=== PATIENT | female | born 1955 | race Caucasian/White ===

== ENCOUNTER → 2023-08-25 06:31 | Day surgery (SDC) | payer MEDICARE, OTHER, SELFPAY | LOC: GI 06:31 | PROVIDERS: ATTENDING PHYSICIAN Internal Medicine Gastroenterology | DX: Z12.11 Encounter for screening for malignant neoplasm of colon (principal); Z86.010 Personal history of colon polyps; K64.8 Other hemorrhoids; K57.30 Diverticulosis of large intestine without perforation or abscess without bleeding | CPT/HCPCS: G0105 ==

== ENCOUNTER 2024-10-24 23:59 | Observation (INO) | payer MEDICARE, OTHER, SELFPAY ==
[2024-10-24 18:36] VITALS: BP 119/73
[2024-10-24 18:48] LABS: Glucose - Point of Care 102 mg/dl (70-99)
[2024-10-24 19:03] LABS: Hematocrit 40.3 % (37.0-47.0); Hemoglobin 13.6 g/dL (12.0-16.0); Mean Corp Hgb Conc. 33.7 g/dL (33.0-37.0); Mean Corpuscular Volume 92.0 fL (81.0-99.0); Nucleated Red Blood Cells % 0 %; Platelet Count 221 10^3/uL (130-400); Red Cell Dist. Width 12.7 % (11.5-14.5)
[2024-10-24 19:23] LABS: ALT (SGPT) 25 U/L (0-35); AST (SGOT) 23 U/L (14-36); Albumin 4.3 g/dl (3.5-5.0); Alkaline Phosphatase 38 U/L (38-126); Blood Urea Nitrogen 18 mg/dl (7-17); Calcium 9.4 mg/dl (8.4-10.2); Carbon Dioxide 29 mmol/L (22-30); Chloride 102 mmol/L (98-107); Glucose 100 mg/dl (70-99); Lithium 1.3 mmol/L (0.6-1.2); Potassium 3.9 mmol/L (3.5-5.1); Sodium 137 mmol/L (135-145); Total Protein 7.4 g/dl (6.3-8.2); eGFR 49.31
--- NOTE | 2024-10-24 20:21 | ED.CVA ---
History of Present Illness
General
Chief Complaint: CVA/TIA Symptoms
Time Seen by Provider: 10/24/24 20:21
Onset of Stroke Symptoms
Onset of symptoms known: No
Time pt last seen normal is known: Yes
Date last time pt seen normal: 10/24/24
History of Present Illness
History of Present Illness:
PAST MEDICAL HISTORY AND REVIEW OF OLD RECORDS
- The patient has a history of diabetes, high blood pressure, hyperlipidemia, and bipolar disorder.
Note:
CHIEF COMPLAINT(S)
Inability to complete sentences and confusion.
I initially spoke to her for history.
HISTORY OF PRESENT ILLNESS
The patient is a 69-year-old female who, according to her , appeared normal at 7 AM this morning. However, [facility] 12 [facility], she began experiencing difficulty in completing sentences, often pausing as if
she lost her words. This symptom has not been noted before, and the patient has no history of stroke. There is no indication of weakness on one side of her body. Currently, she is confused; she has difficulty recalling familiar names such as her
grandsons and struggles with remembering the current day. Additionally, she exhibited problems with tasks such as writing a check, suggesting more than just memory issues. There has been a significant change in her cognitive abilities today compared
to minor occasional forgetfulness in the past year, indicating a major departure from her usual baseline.
PAST MEDICAL AND SURGICAL HISTORY
The patient has an unspecified list of medications, none of which are blood thinners, as reported by her . Her past medical or surgical history relevant to blood-thinning medications is not noted by the .
PHYSICAL EXAM
General: Alert, no acute distress.
Skin: Warm, dry.
Head: Normocephalic, atraumatic.
Neck: Supple, trachea midline.
Eye, Ears, Nose, Mouth, and Throat: Oral mucosa moist.
Cardiovascular: Normal peripheral perfusion, No edema.
Respiratory: Respirations are non-labored.
Gastrointestinal: Abdomen nondistended.
Back: Normal range of motion, normal alignment.
Musculoskeletal: Normal range of motion, normal strength.
Neurological: Excellent strength in all extremities, she could not name the month, she cannot state her age, there is some very mild expressive aphasia at times, she does appear somewhat confused at times, there are no field cuts, questionable
ataxia with finger-nose testing, she continues to be unable to write appropriately
Psychiatric: Cooperative, appropriate mood and affect.
PROBLEM LIST
- Acute: Cognitive impairment, difficulty with verbal expression and task completion.
PLAN
The plan includes obtaining a computed tomography (CT) scan to evaluate for potential neurological causes of the acute cognitive changes noted.
DIFFERENTIAL DIAGNOSIS
The Differential Diagnosis includes, in no particular order and is not limited to:
- Transient ischemic attack
- Stroke
- Delirium
- Alzheimers disease exacerbation
- Medication side effects
- Seizure activity
- Brain tumor
- Hypothyroidism
- Urinary tract infection causing confusion
- Dehydration
RADIOLOGY
- CT head obtained.
EKG
- Sinus 62, normal axis, nonspecific ST abnormality
LABS
- White count 8.9, hemoglobin 13.6, BUN 18, creatinine 1.2, lithium 1.3
SUMMARY OF ENCOUNTER
The patient is a 69-year-old female presenting with acute cognitive changes characterized by an inability to complete sentences and confusion. She was seen in the emergency department after experiencing a significant change from her baseline
cognitive function. Initial evaluation found no focal neurological deficits and a normal CT scan of the head. Despite the absence of clear imaging evidence of a stroke, there remains a high suspicion for an acute cerebrovascular event, particularly
a stroke over a transient ischemic attack (TIA), as her symptoms have not yet resolved. Based on an assessment by a neurologist, further evaluation, including a CT angiogram to assess blood vessels and an MRI, has been recommended for a more
comprehensive evaluation of possible stroke etiology.
DISPOSITION
Admit
ASSESSMENT
Concerning for stroke despite a normal initial CT scan, high suspicion remains due to persistent cognitive and speech-related issues. The plans for hospital admission for further evaluation, including MRI and CT angiogram, are based on the potential
for an evolving cerebrovascular event.
MANAGEMENT OF THE PATIENTS CARE WAS DISCUSSED WITH
Discussed management of the patients condition with the on-call neurologist, who recommended a CT with IV contrast and hospital admission for further evaluation, including an MRI.
PLAN
Proceed with a CT scan with IV contrast to evaluate cerebral vasculature. Admit to the hospital for monitoring and further diagnostic evaluation, including an MRI to assess for possible stroke. Provide supportive care, and prepare for potential
interventions if acute cerebrovascular pathology is confirmed.
INDEPENDENT REVIEW OF LABS AND INTERPRETATION OF TESTS
My independent interpretation of the initial CT scan is that it is normal, though suspicion for a stroke remains.
PATIENT EDUCATION AND COUNSELING
Discussed with the patient the possibility of a stroke given the symptoms, even in the absence of immediate findings on the CT scan. Explained the necessity of further imaging to assess for any blockages or The need for hospital admission for close
monitoring and further diagnostic workup was also communicated effectively.
MEDICAL DECISION MAKING
-Complexity of Data Reviewed: Cognitive impairment, difficulty with verbal expression and task completion.
DDx includes transient ischemic attack, stroke, delirium, Alzheimers disease exacerbation, medication side effects, seizure activity, brain tumor, hypothyroidism, urinary tract infection causing confusion, dehydration.
-Data:
Category 2
Clinical information was obtained from an independent historian, the patients .
Category 3
Discussion of management with the on-call neurologist, who recommended further imaging and hospital admission.
CRITICAL CARE TIME
N/A
DIAGNOSIS
- Suspected stroke (ICD-10: I63.9)
- Cognitive impairment (ICD-10: R41.81)
UPDATE
Discussed case w/ Dr. Trejo - Woke at 7a, spoke to ; was normal. At around 11a, was at [facility], and could not figure out how to write a check. Describes expressive aphasia. Went to lunch w/ friends (no alcohol) and they noted confusion /
aphasia; couldn't complete sentences. Improved now, but some symptoms persist. Cannot name DH and cannot state her ago. Has h/o bipolar and lithium level slightly high at 1.3. H/o HTN, hyperlipidemia, DM. Normal glucose. NIHSS 2. I don't see
anything obvious on CT head. / Dr. Trejo recommends that we keep the patient in the hospital for the possibly of stroke and obtain MRI.
Phy Exam
Physical Exam
Physical Exam:
See HPI
Scores
NIH Stroke Score
Level of Consciousness: 0 - Alert
LOC Questions: 1-Answers one correctly
LOC Commands: 0-Performs both correctly
Best Horizontal Gaze: 0-Normal
Visual Palm: 0=Normal, no visual loss
Facial Palsy: 0=Normal, symmetrical
Motor - Right Arm: 0=No drift 10 seconds
Motor - Left Arm: 0=No drift 10 seconds
Motor - Right Le-No drift 5 seconds
Motor - Left Le-No drift 5 seconds
Limb Ataxia: 0-Absent
Sensation: 0-Normal
Best Language: 1-Mild aphasia
Dysarthria: 0-Normal
Extinction and Inattention: 0-No abnormality
NIH Total Score:: 2
Course
Orders/Labs/Results
Orders:
Orders
10/24/24 18:43
CT Head W/o Iv Contrast Urgent
Comment:
Reason For Exam: expressive aphasia, slowed speach starting 11am
10/24/24 18:47
Electrocardiogram (*1) Urgent
Reason for Study: TIA/Stroke
EKG- Treatment ONCE
10/24/24 18:51
Complete Blood Count/With Diff Urgent
Comprehensive Metabolic Panel Urgent
[place] Urgent
10/24/24 20:51
CT Head & Neck Angio W/wo IV Urgent
Comment:
Reason For Exam: new aphasia; stroke symptoms
0.9% Sodium Chloride 500 ml [Nss] 500 ml IV BOLUS
Abnormal Lab Results
10/24/24 10/24/24
18:46 18:51
MCH 31.1 H pg
(27.0-31.0)
MPV 10.5 H fL
(7.4-10.4)
BUN 18 H mg/dl
(7-17)
Creatinine 1.2 H mg/dL
(0.6-1.0)
Glucose 100 H mg/dl
(70-99)
[place] 1.3 H mmol/L
(0.6-1.2)
POC Glucose 102 H mg/dl
(70-99)
10/24/24 18:51
10/24/24 18:51
Vital Signs
Initial and Last Documented VS:
Initial Vital Signs
Temp Pulse Resp BP Pulse Ox
37.0 C 65 18 119/73 99
10/24/24 18:36 10/24/24 18:36 10/24/24 18:36 10/24/24 18:36 10/24/24 18:36
Last Documented Vital Signs
Temp Pulse Resp BP Pulse Ox
37.0 C 65 18 117/72 100
10/24/24 18:36 10/24/24 18:36 10/24/24 18:36 10/24/24 21:09 10/24/24 21:16
*Pulse Oximetry
SaO2: 99
Oxygen Mode of Delivery: Room air
Patient hypoxic: no
*Critical Care Note
Total Time (30-74mins, 75-104mins- exclusive of procedures): Not Applicable
ED Attending Note
-
Portions of this chart may have been created with voice recognition software.� Occasional wrong word or��sound alike� substitutions may have occurred due to the inherent limitations of voice recognition software.
Discharge Plan
Departure
Patient Disposition: Admit
Date of Disposition: 10/24/24
Time of Disposition: 22:41
Presentation/result/management discussed w/ accepting MD/DO: Hospitalist
Discharge Problem:
Acute cerebrovascular accident (CVA)
Referrals:
Laisha Mackenzie MD [Family Provider, Internal Medicine]
Interventions
Interventions:
*Risk Screen - Suicide Last Done: 10/24/24 18:36
*General Assessment Last Done: 10/24/24 18:36
*Neglect/Abuse Screening Last Done: 10/24/24 18:36
*ED- Fall Risk Assessment Last Done: 10/24/24 21:16
*ED COVID-19 Vaccine History Last Done: 10/24/24 21:16
ED- Pulmonary Assessment Last Done: 10/24/24 21:16
ED- Neurological Assessment Last Done: 10/24/24 21:16
ED- Cardiac Assessment Last Done: 10/24/24 21:16
ED Swallowing Screen Last Done: 10/24/24 21:16
Discharge Date and Time
Print Language: WELSH
[2024-10-24 21:09] VITALS: BP 117/72
[2024-10-24 21:15] VITALS: BMI 26.8
[2024-10-24] MEDS: NSS 500 IV (21:15)
[2024-10-24 22:00] VITALS: BP 103/67
[2024-10-24 23:00] VITALS: BP 96/57
--- NOTE | 2024-10-24 23:39 | HPS.HSE ---
Family Physician
-
Family Physician: Laisha Mackenzie
Chief Complaint
-
Confusion
History of Present Illness
Patient is a 69y F with PMH significant for bipolar depression, hypertension and psoriatic arthritis who presents to ED complaining of confusion. Patient states that she woke around 7 AM today feeling well. Her noted nothing unusual
this AM. Around 8:30 this morning she was with a friend when they noted that she seemed confused. She was having trouble thinking of words to say. She was unable to write a check this AM - could not figure out / remember how this was done.
Patient continued to be confused throughout the afternoon and presented to the ED for further evaluation.
Patient denies any prior history of similar confusion / episodes.
She denies any headache, vision changes, numbness / tingling, weakness, ataxia, etc.
Her newest medication is Seroquel which was added about one month ago. She takes several medications 'as needed' for sleep. She does not recall which of these she may have taken last PM.
In the ED, patient has some sow / sluggish speech - but is fully oriented and answers questions appropriately.
Medical History
Past Medical History
Past Medical History: Reports Other
Additional Past Medical History:
Hypertension
DM-II
Bipolar Depression
ADHD
Psoriatic Arthritis
Hypothyroidism
Diverticular Disease
Past Surgical History: Reports Other
Additional Past Surgical History:
Back Surgery x 3
Plantar Fascia Surgery x 2
Social History
Tobacco: Non-smoker
Alcohol: None
Drug: None
Family History
Family History: Not pertinent
Allergies / Home Medications
Allergies reflects when Allergies were last updated in [email or web address].
Home Medications with original date entered in [email or web address]
Allergy/Medication List:
Allergies
Allergy/AdvReac Type Severity Reaction Status Date / Time
cefdinir (From Omnicef) Allergy Unknown Unknown Verified 10/24/24 18:36
amoxicillin (From Augmentin) Allergy Unknown Verified 10/24/24 18:36
aripiprazole (From Abilify) Allergy Unknown Verified 10/24/24 18:36
clavulanic acid (From Allergy Unknown Verified 10/24/24 18:36
Augmentin)
lamotrigine Allergy Unknown Verified 10/24/24 18:36
naltrexone Allergy Unknown Verified 10/24/24 18:36
NSAIDS (Non-Steroidal Allergy Unknown Verified 10/24/24 18:36
Anti-Inflamma
zolpidem (From Ambien) Allergy Unknown Verified 10/24/24 18:36
Home Medications
aspirin 81 mg chewable tablet 81 mg PO DAILY 10/24/24
carbamazepine 200 mg tablet 400 mg PO DAILY 10/24/24
certolizumab pegol 200 mg/mL subcutaneous syringe kit (Cimzia) 400 mg SC Q4W 10/24/24
ezetimibe 10 mg tablet 10 mg PO HS 10/24/24
levothyroxine 50 mcg tablet (Synthroid) 50 mcg PO HS 10/24/24
lithium carbonate 450 mg tablet,extended release 450 mg PO HS 10/24/24
lorazepam 2 mg tablet 2 mg PO HS PRN Insomnia 10/24/24
methylphenidate HCl 5 mg tablet 5 mg PO DAILY 10/24/24
omeprazole 20 mg capsule,delayed release 20 mg PO DAILY 10/24/24
propranolol 80 mg capsule,24 hr,extended release 80 mg PO HS 10/24/24
quetiapine 100 mg tablet 100 mg PO HS 10/24/24
rosuvastatin 20 mg tablet 20 mg PO HS 10/24/24
temazepam 30 mg capsule 30 mg PO HS PRN Insomnia 10/24/24
tirzepatide (weight loss) 10 mg/0.5 mL subcutaneous pen injector (Zepbound) 10 mg SC QWEEK 10/24/24
triamterene 37.5 mg-hydrochlorothiazide 25 mg tablet 1 tab PO DAILY 10/24/24
Review of Systems
-
History Source: Patient
A 12 point ROS was completed and negative except as noted: Yes
Constitutional: Denies Fever or Chills
Respiratory: Denies Cough or Trouble Breathing
Cardiac: Denies Chest Pain or Palpitations
Abdomen/GI: Denies Abdominal Pain, Nausea, Vomiting or Diarrhea
: Denies Dysuria, Frequency or Flank Pain
Musculoskeletal: Denies Joint Pain or Edema
Neurological: Denies Dizzy, Headache, Weakness or Numbness
Psych: Denies Depression or Anxiety
Physical Exam
Vital Signs
Vital Signs
Temp Pulse Resp BP Pulse Ox
98.6 F 65 18 96/57 97
10/24/24 18:36 10/24/24 18:36 10/24/24 18:36 10/24/24 23:00 10/24/24 23:01
Physical Exam
General: Other (69y F in no acute distress.)
HEENT: Moist mucous membranes and PERRLA
Respiratory: Clear; No Wheezes, Rales or Rhonchi
Cardiac: S1/S2 and Regular Rhythm; No Murmur
GI: Soft, Non Tender, Non Distended and Normal Bowel Sounds
Musculoskeletal: No Clubbing, No Cyanosis and No Edema
Neuro: AO x 3 and Nonfocal/grossly intact
Laboratory Results
-
10/24/24 18:51
10/24/24 18:51
Laboratory Results
Total Bilirubin 0.4 mg/dl (0.2-1.3) 10/24/24 18:51
AST 23 U/L (14-36) 10/24/24 18:51
ALT 25 U/L (0-35) 10/24/24 18:51
Alkaline Phosphatase 38 U/L (38-126) 10/24/24 18:51
Impression/Plan
-
A/P: Patient is a 69y F with PMH significant for bipolar depression, hypertension and hypothyroidism who presents to ED complaining of confusion.
Confusion / Aphasia
- Observe overnight for further evaluation and treatment.
- ? etiology of symptoms: CVA v Li toxicity v med effect v other.
- Monitor for any new / worsening symptoms.
- CT / CTA in the ED were unremarkable. Check MRI in AM.
- Neurology evaluation.
- Continue daily ASA, statin, etc.
- Hold sedating medications. Hold lithium this evening.
Bipolar Depression
ADHD
- Holding lithium acutely as noted above for slightly elevated level (1.3).
Benign Hypertension
- Stable. BP is not elevated. Continue usual regimen with holding parameters.
Diet-Controlled DM-II
- On no meds at home. Significant weight loss in the past 2-3 years with Zepbound.
- Check A1C.
Hypothyroidism
- Check TFTs and adjust T4 dose if indicated.
Insomnia / Polypharmacy
- Patient on multiple medications for sleep - some standing and some PRN.
- Certainly possible these are contributing to confusion, etc.
- Hold sedating meds as noted above.
DVT Prophylaxis: SCDs
Code Status: Full
[2024-10-25] VITALS (7 sets, daily range): BP systolic 97–135; BP diastolic 53–73; PULSE 60–73; O2SAT 99; BMI 26.6
--- NOTE | 2024-10-25 03:00 | PTCARENOTE ---
Received pt from ED at around 02:15. Pt able to ambulate from stretcher to bed with no issues. NIHSS performed, score= 3 for aphasia, mild RUE ataxia, and answering age question incorrectly.
[2024-10-25 07:36] LABS: Hematocrit 38.2 % (37.0-47.0); Hemoglobin 12.8 g/dL (12.0-16.0); Mean Corp Hgb Conc. 33.5 g/dL (33.0-37.0); Mean Corpuscular Volume 93.9 fL (81.0-99.0); Platelet Count 193 10^3/uL (130-400); Red Cell Dist. Width 12.5 % (11.5-14.5)
[2024-10-25 08:03] LABS: Blood Urea Nitrogen 16 mg/dl (7-17); Calcium 9.1 mg/dl (8.4-10.2); Carbon Dioxide 27 mmol/L (22-30); Chloride 105 mmol/L (98-107); Estimated Creatinine Clearance 45 ml/min; Glucose 101 mg/dl (70-99); HDL Cholesterol 62 mg/dl; LDL Cholesterol, Calculated 55 mg/dl; Potassium 3.8 mmol/L (3.5-5.1); Sodium 137 mmol/L (135-145); Very Low Density Lipoprotein 19 mg/dl (0-30); eGFR > 60.00
--- NOTE | 2024-10-25 08:10 | PTOTSP ---
Speech Language Pathology
Pt seen for speech/language evaluations. R facial droop noted with slight labial leakage of saliva on R. Of note, lingual deviation to the L noted. Slow rate of speech noted, but pt stated this is typical speech rate. No dysarthria noted with
adequate diadochokinetic (DDK) rates. Mild word-finding difficulties noted in confrontation naming, but no anomia noted in conversation. Language evaluated via the Quick Aphasia Battery (QAB), form 1. Pt with an overall score of 9.37 (WNL). Pt
scored mildly impaired on subtests for sentence comprehension and word-finding. Scored WNL on all other subtests.
Pt also seen for clinical bedside swallow evaluation. P.O. trials of regular solids and thin liquids provided. Adequate mastication, bolus formation, and A-P transit noted with no oral residue. No overt signs of aspiration.
Recommend:
(1) Regular solids/thin liquids
(2) General aspiration precautions
(3) Meds as tolerated
(4) [employer] to continue to follow for language tx
[2024-10-25] MEDS: LOW STRENGTH ASPIRIN 81 MG PO (08:31)
[2024-10-25] MEDS: PROTONIX 40 MG PO (08:31)
[2024-10-25] MEDS: TEGRETOL 400 MG PO (08:31)
[2024-10-25] MEDS: THIAMINE INJECTION 100 MG IV (08:32)
[2024-10-25 08:34] LABS: Lithium 1.0 mmol/L (0.6-1.2)
[2024-10-25 08:54] LABS: Glycohemoglobin (HgbA1c) 5.3 % (4.0-5.6)
--- NOTE | 2024-10-25 09:02 | CON.NEURO4 ---
Addendum entered and electronically signed by Russell Trejo MD 10/25/24 11:47:
Studies reviewed.
I have personally examined the patient. I reviewed and agree with the ASSOCIATE PROFESSOR OF GEOGRAPHY's Note.
My addenda:
Awake, alert, interactive. No acute distress.
Speech intact.
Follows 2-step requests w/o difficulty. No tremor.
Extra-ocular movements grossly intact.
Facial movements full and symmetric. Hearing intact to normal conversational volume.
Normal UE movements bilaterally.
Neck: full ROM.
Chest: no dyspnea
Heart: no JVD
Ext: (-) Clubbing, (-) Cyanosis, (-) Edema
IMPRESSIONS/RECOMMENDATIONS:
Abrupt onset of aphasia and confusion
Most likely secondary to toxic metabolic encephalopathy. Differential diagnosis includes acute ischemic stroke although this is less likely based on absence of numerous risk factors; as well as development of autoimmune disorder due to surgery
Certolizumab
Check MRI of brain for completeness
Check blood work for additional metabolic causes
Check aspirin for efficacy if MRI demonstrates acute ischemic stroke
Continue Ezetimibe
Follow carbamazepine level
Follow lithium level
Continue usual therapies for mood
D/W patient
All questions answered.
Will continue to follow pending results.
Original Note:
Documented by User: Danya Ken NP 10/25/24 11:36
Consultation - Neurology 4
-
CONSULTING PHYSICIAN: Russell Trejo MD
REFERRING PHYSICIAN: Hospitalists/Dr. Fortune
DICTATED BY: HERNESTO De Guzman
DATE/TIME OF REQUEST: 10/25/24
DATE/TIME OF CONSULTATION: 10/25/24
Reason for Consultation: Expressive aphasia, confusion
History of Present Illness:
This is a 69-year-old right-handed female who has presented to the hospital on 10/24/24 with report of aphasia and confusion. Patient reports that yesterday (10/24/24) she woke up in her usual state around 0700. Patient reports that she was at the
hairdresser around 1100 and started having difficulty finding her words and she went to write a check and couldn't figure out how to do this. This persisted throughout the day, prompting her to bring her to the ER for evaluation. CT head and
CTA head/neck were obtained on arrival and are negative for any acute abnormalities. NIHSS was 2 for one incorrect orientation question and mild aphasia. She was not a candidate for TNK/IAT due to outside of the time window and no LVO. [place] level
is slightly elevated at 1.3. She newly started taking quetiapine about a month ago. She is taking aspirin 81mg daily for cardiac purposes. Patient reports that this morning (10/25/24) she feels back to her baseline. She denies any headache,
dizziness, vision changes, speech/swallow difficulty, numbness, and weakness. She denies any history of stroke or events like this in the past.
Past Medical History: HTN, HLD, NIDDM, hypothyroidism, ADHD, bipolar depression, diverticulitis, psoriatic arthritis
Surgical History: Back surgery x3, plantar fascia surgery x2
Family History: Father- Parkinson's disease
Social History: Denies tobacco, alcohol, and illicit drug use.
Allergies: See below.
Home Medications: See below.
Review of Symptoms:
Patient denies any fever, headache, chest pain, shortness of breath, GI or symptoms.
�Per the HPI.�All systems are reviewed negative except above.
Physical Exam:
The patient is afebrile, abdomen is nondistended, breathing is unlabored, skin is warm and dry, no edema.
NIH Stroke Scale:
I performed the NIH stroke scale on the patient on 10/25/24 at 0910. The patient scored 2 points on the NIH stroke scale assessment, which were assigned as follows: See below.
Neurologic Examination:
The patient is awake, alert and oriented x 3. She is able to follow commands and answer questions appropriately. Moderate difficulty following two-step commands. There is no aphasia, response time is mildly slow at times. Speech is intermittently
mildly slurred. On cranial nerve assessment, pupils are 3 mm bilateral, round and reactive to light and accommodation. Visual palm are full. Extraocular movements are intact. Facial sensations are intact and bilaterally symmetrical, there is mild
right facial drooping/ptosis. Hearing is intact bilaterally to normal conversation volume. Tongue palate and uvula are midline. Sternocleidomastoid strengths are full bilaterally. Motor strengths are 5/5 bilateral upper and lower extremities on
medical research [employer] scale. There is no drift or involuntary movement noted. Deep tendon reflexes are 2+ bilateral upper and lower extremities and Babinski is absent bilaterally. There was no extinction noted on double simultaneous stimulation.
Coordination is intact by finger to nose bilaterally.
Lab Results: See below.
Neuro Imaging:
1. CT Head 10/24/24: No acute intracranial abnormality noted.
2. CTA head/neck 10/24/24: No significant vascular occlusion, aneurysm or dissection.
Differentials for the patient's presentation include:
1. Confusion, aphasia; possible etiologies include metabolic disturbance in the setting of mildly elevated lithium level and polypharmacy vs small ischemic stroke.
Patient has the following risk factors for their symptoms: HTN, HLD, NIDDM, elevated lithium level, polypharmacy
IV Tenecteplase/IAT candidacy: She was not a candidate for TNK/IAT due to outside of the time window and no LVO.
Recommendations:
-Continue aspirin 81mg daily.
-Repeat lithium level is normal.
-MRI brain noncontrast pending.
-Goal normotension.
-Minimize sedating medications.
-LDL goal <70. LDL 55.
-Goal normoglycemia, hbA1c is 5.3.
-NIHSS and neurological checks per unit guidelines.
-ST evaluation.
-Provide patient with a stroke education packet.
-DVT prophylaxis.
Discussed patient care with: Dr. Trejo, the patient
Vital Signs and Labs
-
Vital Signs and Labs:
Vital Signs
Temp Pulse Resp BP Pulse Ox
98.1 F 59 18 128/71 98
10/25/24 08:00 10/25/24 08:00 10/25/24 08:00 10/25/24 08:00 10/25/24 08:00
Lab Results
10/25/24 06:49
10/25/24 06:49
Sodium 137 mmol/L (135-145) 10/25/24 06:49
Potassium 3.8 mmol/L (3.5-5.1) 10/25/24 06:49
BUN 16 mg/dl (7-17) 10/25/24 06:49
Glucose 101 mg/dl (70-99) H 10/25/24 06:49
Calcium 9.1 mg/dl (8.4-10.2) 10/25/24 06:49
LDL Cholesterol, Calc 55 mg/dl 10/25/24 06:49
Medications
-
Active Medications
Generic Name Dose Route Start Last Admin
Trade Name Freq PRN Reason Stop Dose Admin
Acetaminophen 650 mg 10/25/24 02:01
Acetaminophen 325 Mg Tablet PO 11/22/24 02:00
Q4HPRN PRN
Mild Pain / Temp > 101
Aspirin 81 mg 10/25/24 08:00 10/25/24 08:31
Aspirin 81 Mg Chewable Tablet PO 11/22/24 07:59 81 mg
DAILY SUNSHINE Administration
Carbamazepine 400 mg 10/25/24 08:00 10/25/24 08:31
Carbamazepine 200 Mg Tablet PO 11/22/24 07:59 400 mg
DAILY SUNSHINE Administration
Ezetimibe 10 mg 10/25/24 22:00
Ezetimibe (Zetia) 10 Mg Tablet PO 11/22/24 21:59
HS SUNSHINE
Levothyroxine Sodium 50 mcg 10/25/24 22:00
Levothyroxine 50 Mcg Tablet PO 11/22/24 21:59
HS SUNSHINE
Pantoprazole Sodium 40 mg 10/25/24 08:00 10/25/24 08:31
Pantoprazole 40 Mg Delayed Release Tablet PO 11/22/24 07:59 40 mg
DAILY SUNSHINE Administration
Rosuvastatin Calcium 20 mg 10/25/24 22:00
Rosuvastatin (Crestor) 20 Mg Tablet PO 11/22/24 21:59
HS SUNSHINE
Sodium Chloride 0 flush 10/25/24 03:00
Sodium Chloride 0.9% (Flush) Syringe IV 11/22/24 02:59
PER PROTOCOL SUNSHINE
Thiamine HCl 100 mg 10/25/24 08:00 10/25/24 08:32
Thiamine (100 Mg/Ml) 2 Ml Vial IV 10/28/24 07:59 100 mg
DAILY SUNSHINE Administration
Home Medications
�Medication �Instructions �Recorded
aspirin 81 mg chewable tablet 81 mg PO DAILY 10/24/24
carbamazepine 200 mg tablet 400 mg PO DAILY 10/24/24
certolizumab pegol 200 mg/mL 400 mg SC Q4W 10/24/24
subcutaneous syringe kit (Cimzia)
ezetimibe 10 mg tablet 10 mg PO HS 10/24/24
levothyroxine 50 mcg tablet 50 mcg PO HS 10/24/24
(Synthroid)
lithium carbonate 450 mg 450 mg PO HS 10/24/24
tablet,extended release
lorazepam 2 mg tablet 2 mg PO HS PRN Insomnia 10/24/24
methylphenidate HCl 5 mg tablet 5 mg PO DAILY 10/24/24
omeprazole 20 mg capsule,delayed 20 mg PO DAILY 10/24/24
release
propranolol 80 mg capsule,24 80 mg PO HS 10/24/24
hr,extended release
quetiapine 100 mg tablet 100 mg PO HS 10/24/24
rosuvastatin 20 mg tablet 20 mg PO HS 10/24/24
temazepam 30 mg capsule 30 mg PO HS PRN Insomnia 10/24/24
tirzepatide (weight loss) 10 10 mg SC QWEEK 10/24/24
mg/0.5 mL subcutaneous pen
injector (Zepbound)
triamterene 37.5 1 tab PO DAILY 10/24/24
mg-hydrochlorothiazide 25 mg tablet
NIH Stroke Score
Subsequent NIH Scale
Date of Subsequent NIH Scale: 10/25/24
Time of Subsequent NIH Scale: 09:10
NIH Stroke Score
Level of Consciousness: 0 - Alert
LOC Questions: 0-Answers both correctly
LOC Commands: 0-Performs both correctly
Best Horizontal Gaze: 0-Normal
Visual Palm: 0=Normal, no visual loss
Facial Palsy: 1=Minor paralysis
Motor - Right Arm: 0=No drift 10 seconds
Motor - Left Arm: 0=No drift 10 seconds
Motor - Right Le-No drift 5 seconds
Motor - Left Le-No drift 5 seconds
Limb Ataxia: 0-Absent
Sensation: 0-Normal
Best Language: 0-No aphasia
Dysarthria: 1-Mild slurring
Extinction and Inattention: 0-No abnormality
NIH Total Score:: 2
Modified [place] (mRS) Score
[place] Scale (mRS): No significant disability. Able to carry out usual activities.
Score: 1
Alteplase Contraindication
Inclusion and Exclusion criteria reviewed: Yes
Reasons for NON-Tx with Thrombolytics ABSOLUTE Exclusions: Greater than 4.5 hrs from onset of sxs
Allergies
-
Allergies
Allergy/AdvReac Type Severity Reaction Status Date / Time
cefdinir (From Omnicef) Allergy Unknown Unknown Verified 10/24/24 18:36
amoxicillin (From Augmentin) Allergy Unknown Verified 10/24/24 18:36
aripiprazole (From Abilify) Allergy Unknown Verified 10/24/24 18:36
clavulanic acid (From Allergy Unknown Verified 10/24/24 18:36
Augmentin)
lamotrigine Allergy Unknown Verified 10/24/24 18:36
naltrexone Allergy Unknown Verified 10/24/24 18:36
NSAIDS (Non-Steroidal Allergy Unknown Verified 10/24/24 18:36
Anti-Inflamma
zolpidem (From Ambien) Allergy Unknown Verified 10/24/24 18:36

Documented by User: Russell Trejo MD 10/25/24 11:40
NIH Stroke Score
NIH Stroke Score
NIH Total Score:: 2
Modified [place] (mRS) Score
Score: 1
--- NOTE | 2024-10-25 09:37 | W.PN.HOSP.TC ---
Today's Communication/Plan
-
MRI brain, neurology eval and recs
Assessment / Plan
Assessment / Plan
69F w/bipolar depression, hypertension and psoriatic arthritis p/w confusion, and sluggish speech, diarrhea.
Confusion / Aphasia
- ? etiology of symptoms: CVA v Li toxicity v med effect v other vs TIA. Symptoms have improved 'almost' back to normal
- Monitor for any new / worsening symptoms.
- CT / CTA in the ED were unremarkable. MRI brain performed and shows no acute stroke
- Neurology evaluation pending.
- Continue daily ASA, statin, etc.
- Hold sedating medications. Hold lithium until neuro eval
If speech continues to be slow will order ST
Bipolar Depression
ADHD
- Her outpt psychiatrist is recommending lithium be decreased from 450 to 300
slightly elevated level (1.3).
Benign Hypertension
- Stable. BP is not elevated. Hold triamterene�hydrochlorothiazide, propranolol, for 24 to 48 hours
Diet-Controlled DM-II�resolved
- On no meds at home. Significant weight loss in the past 2-3 years with Zepbound.
- A1C is 5.3%.
Hypothyroidism
- TSH is within normal limits
Continue Synthroid
Insomnia / Polypharmacy
- Patient on multiple medications for sleep - some standing and some PRN.
- Certainly possible these are contributing to confusion, etc.
- Hold sedating meds as noted above.
DVT Prophylaxis: SCDs
Code Status: Full
Anticipated Discharge: 24 - 48 hours
Subjective/Interval History
-
Date of Service: October 25, 2024
Pt feels well, says she is 'almost' back to normal.
Objective Data
-
Labs:
Laboratory Results
10/25/24
06:49
WBC 9.0
Hgb 12.8
Hct 38.2
Plt Count 193
Sodium 137
Potassium 3.8
Chloride 105
Carbon Dioxide 27
BUN 16
Creatinine 1.0
Glucose 101 H
Calcium 9.1
Vital Signs:
Vital Signs
Temp Pulse Resp BP Pulse Ox
98.1 F 59 18 128/71 98
10/25/24 08:00 10/25/24 08:00 10/25/24 08:00 10/25/24 08:00 10/25/24 08:00
I&O
10/24/24 10/25/24 10/26/24
06:59 06:59 06:59
Intake Total 120 / 120
Balance 120 / 120
Review of Systems
-
All other systems: Reviewed and negative
Physical Exam
-
General: No Apparent Distress
HEENT: Moist Mucous Membranes, Anicteric and PERRLA
Respiratory: Clear to Auscultation; Negative Wheezes, Rales or Rhonchi
Cardiac: Regular Rhythm and S1/S2; Negative Murmur, Rub or Gallop
GI: Soft, Nontender, Nondistended and Normal Bowel Sounds
Musculoskeletal: No Edema
Skin: Warm and Dry; Negative Rash, Ulcers or Lesions
Neuro: Awake, AO x 3 and Nonfocal/Grossly Intact; Negative No Motor Deficits, Slurred Speech or Facial Droop
Hematologic / Lymphatic: No Lymphadenopathy
Psych: Calm
Data Reviewed
-
MRI: Report Reviewed by me
Labs: Labs Reviewed by me and Discussed with Patient
--- NOTE | 2024-10-25 11:32 | CM ---
auditing manager reviewed patient's chart and met with patient and patient was admitted under OBS, SAHA letter provided to patient. Patient lives with spouse in a 1 story home with no steps to enter, patient was independent with adl's and ambulation, no
dme, patient was seen by physical therapy and patient is ambulating 120 feet no AD with physical therapy and plan is to home, no needs when stable.
PCP; Laisha Mackenzie
Pharmacy: [facility] in [place].
--- NOTE | 2024-10-25 13:51 | W.DCSUMMARY ---
Discharge Summary
Discharge Data
Date of Admission: 10/24/24
Date of Discharge: 10/25/24
-
Pending Results: No
Hospital Course
Attending physician on day of discharge:
Daisha Cruz MD
Admission diagnosis:
Confusion
Discharge diagnosis:
Acute toxic metabolic encephalopathy
Secondary diagnoses:
Depression
Hypertension
Hypothyroidism
Insomnia
Consultations:
Neurology
Diagnostic findings:
MRI:
Hospital course:
69F with bipolar on lithium presenting with confusion episode, admitted for possible stroke. CT head and CTA head and neck showed no evidence of stroke, MRI was performed also with no evidence of stroke. Neurology was consulted and felt this was
therefore more likely to be toxic metabolic encephalopathy due to the lithium. Patient spoke to her outpatient psychiatrist to decrease her lithium to 300 mg. Her symptoms improved. She was cleared by speech and PT charged home in stable
condition.
Discharge disposition:
Home
Discharge Plan
-
Patient Disposition: Home (Routine Discharge)
Discharge Diagnosis/Procedures: Acute toxic/metaboloic encephalopathy
Diet: Regular
Activity: No restrictions
Driving Restrictions: As prior to admission
Instructions: Toxic-metabolic encephalopathy
Referrals:
Laisha Mackenzie MD [Family Provider, Internal Medicine]
Additional Discharge Medication Instructions: You had an episode of confusion which resolved. You were seen by the neurologist Dr. Trejo. You had an MRI which did not show stroke. You were felt to have encephalopathy possibly due to the lithium so
your dose has been reduced.
Prescriptions:
New
lithium carbonate 300 mg tablet extended release
300 mg PO DAILY Qty: 30 0RF
Continued
methylphenidate HCl 5 mg tablet
5 mg PO DAILY
quetiapine 100 mg tablet
100 mg PO HS
carbamazepine 200 mg tablet
400 mg PO DAILY
temazepam 30 mg capsule
30 mg PO HS PRN (Reason: Insomnia)
lorazepam 2 mg tablet
2 mg PO HS PRN (Reason: Insomnia)
levothyroxine [Synthroid] 50 mcg tablet
50 mcg PO HS
propranolol 80 mg capsule,extended release 24 hr
80 mg PO HS
triamterene-hydrochlorothiazid 37.5-25 mg tablet
1 tab PO DAILY
omeprazole 20 mg Capsule,Delayed Release(Dr/Ec)
20 mg PO DAILY
aspirin 81 mg Tablet,Chewable
81 mg PO DAILY
ezetimibe 10 mg tablet
10 mg PO HS
rosuvastatin 20 mg tablet
20 mg PO HS
Zepbound 10 mg/0.5 mL Pen Injector
10 mg SC QWEEK
Cimzia 200 mg/mL Syringe Kit
400 mg SC Q4W
Discontinued
lithium carbonate 450 mg tablet extended release
450 mg PO HS
Discharge Orders:
Discharge Patient (As Directed); Ordered 10/25/24
Ordered By: Daisha Cruz
Discharge Date and Time
Print Language: PARAGUAYAN
== END 2024-10-25 17:42 | disposition home or self-care (01) ==
LOC: 4 WEST ACU 23:59
PROVIDERS: Emergency Medicine; ADMITTING PHYSICIAN Hospitalist; ATTENDING PHYSICIAN Internal Medicine; CONSULT PHYSICIAN Psychiatry & Neurology Neurology; EMERGENCY PHYSICIAN Emergency Medicine; FAMILY PHYSICIAN Internal Medicine
DX: G92.8 Other toxic encephalopathy (principal); F31.9 Bipolar disorder, unspecified; I10 Essential (primary) hypertension; L40.50 Arthropathic psoriasis, unspecified; E03.9 Hypothyroidism, unspecified; E11.9 Type 2 diabetes mellitus without complications; F90.9 Attention-deficit hyperactivity disorder, unspecified type; G47.00 Insomnia, unspecified; E78.5 Hyperlipidemia, unspecified; Z79.82 Long term (current) use of aspirin; Z79.85 Long-term (current) use of injectable non-insulin antidiabetic drugs; Z79.899 Other long term (current) drug therapy
CPT/HCPCS: 70450; 70496; 70498; 70551; 80048; 80053; 80061; 80156; 80178; 82962; 83036; 84443; 85025; 85027; 92523; 92610; 93005; 96360; 97162; 99285; G0378; Q9967